=== PATIENT | female | born 1990 | race African-American/Black ===

== ENCOUNTER 2020-04-21 09:51 | Emergency (ER) | payer BC, OTHER ==
[~2020-04-21] VITALS: Ht 167.6 cm; Wt 82.1 kg
[2020-04-21 10:17] VITALS: BP 122/68
[2020-04-21 10:42] LABS: Urine Bacteria NONE SEEN /hpf (None Seen); Urine Blood Negative /uL (Negative); Urine Specific Gravity 1.016 (1.001-1.035); Urine WBC 1 /hpf (0 - 5)
[2020-04-21 11:52] LABS: Basophils # (auto) 0.1 10 ^3/uL (0-0.2); Eosinophils # (auto) 0.5 10 ^3/uL (0-0.8); Eosinophils % (auto) 6.2 % (0.0-7.0); Lymphocytes # (auto) 1.6 10 ^3/uL (0.4-5.4); Monocytes # (auto) 0.5 10 ^3/uL (0-1.3); Monocytes % (auto) 7.1 % (0.0-12.0); Nucleated Red Blood Cells % 0.1 %; White Blood Cell 7.7 10^3/uL (4.4-10.8)
[2020-04-21 11:53] LABS: Basophils % (auto) 1.4 % (0.0-2.0); Hematocrit 32.9 % (36.0-46.0); Hemoglobin 10.6 g/dL (12.2-16.2); Lymphocytes % (auto) 20.7 % (10.0-50.0); Mean Corpuscular Hemoglobin 25.1 pg (28.0-32.0); Mean Corpuscular Hgb Conc. 32.1 g/dL (32.0-36.0); Mean Corpuscular Volume 78.4 fL (80.0-100.0); Neutrophils % (auto) 64.6 % (37.0-80.0); Platelet Count (auto) 333 10^3/uL (140-450); Red Cell Distribution Width 19.1 % (11.8-14.3)
== END 2020-04-21 13:49 | disposition home or self-care (01) ==
LOC: ER 09:51
DX: O26.851 Spotting complicating pregnancy, first trimester (principal); O34.11 Maternal care for benign tumor of corpus uteri, first trimester; D25.9 Leiomyoma of uterus, unspecified; Z3A.01 Less than 8 weeks gestation of pregnancy
CPT/HCPCS: 36415; 76801; 76817; 81001; 84702; 85025

== ENCOUNTER 2020-04-22 07:08 | Emergency (ER) | payer BC ==
[~2020-04-22] VITALS: Ht 167.6 cm; Wt 82.1 kg
[2020-04-22 07:35] VITALS: BP 120/78
[2020-04-22 09:17] LABS: Basophils # (auto) 0.1 10 ^3/uL (0-0.2); Eosinophils # (auto) 0.5 10 ^3/uL (0-0.8); Hematocrit 34.4 % (36.0-46.0); Monocytes # (auto) 0.4 10 ^3/uL (0-1.3); Platelet Count (auto) 355 10^3/uL (140-450); White Blood Cell 7.8 10^3/uL (4.4-10.8)
[2020-04-22 09:19] LABS: Basophils % (auto) 0.9 % (0.0-2.0); Eosinophils % (auto) 5.9 % (0.0-7.0); Lymphocytes # (auto) 1.3 10 ^3/uL (0.4-5.4); Lymphocytes % (auto) 17.1 % (10.0-50.0); Mean Corpuscular Hemoglobin 25.1 pg (28.0-32.0); Mean Corpuscular Volume 78.5 fL (80.0-100.0); Monocytes % (auto) 4.9 % (0.0-12.0); Neutrophils # (auto) 5.6 10 ^3/uL (1.6-8.6); Neutrophils % (auto) 71.2 % (37.0-80.0); Nucleated Red Blood Cells % 0.1 %; Red Blood Cells 4.38 10^6/uL (4.0-5.20); Red Cell Distribution Width 18.6 % (11.8-14.3)
== END 2020-04-22 13:58 | disposition left against medical advice (07) ==
LOC: ER 07:08
DX: O34.11 Maternal care for benign tumor of corpus uteri, first trimester (principal); O20.0 Threatened abortion; Z3A.01 Less than 8 weeks gestation of pregnancy
CPT/HCPCS: 36415; 84702; 85025